=== PATIENT | female | born 1985 | race Caucasian/White ===

== ENCOUNTER 2016-08-10 09:08 | Emergency (ER) | payer BC ==
[~2016-08-10] VITALS: Ht 170.2 cm; Wt 58.0 kg
[2016-08-10 09:10] VITALS: BP 132/96; PULSE 116; RESP 20; TEMP 98.4; O2SAT 100
[2016-08-10] MEDS ORDERED: SODIUM CHLOR 0.9% 1000 ML INJ 1,000 ML IV SCH (10:22)
[2016-08-10] MEDS ORDERED: ONDANSETRON HCL 4 MG/2 ML VIAL IVP ONE (10:30)
[2016-08-10] MEDS ORDERED: SODIUM CHLORIDE 0.9% FLUSH 10 ML FLUSH IV FLUSH PRN (10:30)
--- NOTE | 2016-08-10 10:30 | PD ---
HPI Chief Complaint: GI Complaint Time Seen by Provider: 10:25 Travel History International Travel<30 days: No Contact w/Intl Traveler<30days: No Traveled to known affect area: No History of Present Illness HPI 31-year-old female presents to the emergency department for evaluation of nausea and weakness that started this morning. She reports chronic abdominal discomfort which is not worse. Patient denies any fevers or chills. She has had no vomiting. She was able to eat and pending and at this morning. She reports one episode of diarrhea without blood in her stool. No chest pain or shortness of breath. Patient denies . She does report a history of IBS, but is not currently on any medications. Patient does report burning with urination that started this morning as well. PFSH Past Medical History Anxiety: Yes Diabetes: No Medical other: Yes (IBS) Tetanus Vaccination: < 5 Years Influenza Vaccination: Yes ?: Not LMP: ONE WEEK AGO Past Surgical History Surgical History: No Previous Surgery Social History Alcohol Use: No Tobacco Use: No Substance Use: No Allergies-Medications (Allergen,Severity, Reaction): Coded Allergies: No Known Allergies (Unverified , 08/10/16) Reported Meds & Prescriptions Reported Meds & Active Scripts Active No Active Prescriptions or Reported Medications Review of Systems Except as stated in HPI: all other systems reviewed are Neg Physical Exam Narrative GENERAL: Well-nourished, well-developed female patient, ambulatory. Afebrile. SKIN: Focused skin assessment warm/dry. HEAD: Normocephalic. Atraumatic. EYES: No scleral icterus. No injection or drainage. NECK: Supple, trachea midline. No JVD or lymphadenopathy. CARDIOVASCULAR: Regular rate and rhythm without murmurs, gallops, or rubs. RESPIRATORY: Breath sounds equal bilaterally. No accessory muscle use. Lungs sounds are clear to auscultation. GASTROINTESTINAL: Abdomen soft, non-tender, nondistended. MUSCULOSKELETAL: No cyanosis, or edema. BACK: Nontender without obvious deformity. No CVA tenderness. Data Data Last Documented VS Vital Signs Date Time Temp Pulse Resp B/P Pulse Ox O2 Delivery O2 Flow Rate FiO2 08/10/16 10:32 18 98 Room Air 08/10/16 09:10 98.4 116 132/96 Orders Complete Blood Count With Diff (08/10/16 10:22) Comprehensive Metabolic Panel (08/10/16 10:22) Lipase (08/10/16 10:22) Urinalysis - C+S If Indicated (08/10/16 10:22) Iv Access Insert/Monitor (08/10/16 10:22) Ecg Monitoring (08/10/16 10:22) Oximetry (08/10/16 10:22) Ondansetron Inj (Zofran Inj) (08/10/16 10:30) Sodium Chlor 0.9% 1000 Ml Inj (Ns 1000 M (08/10/16 10:22) Sodium Chloride 0.9% Flush (Ns Flush) (08/10/16 10:30) Ed Urine Pregnancytest Poc (08/10/16 10:22) Labs Laboratory Tests Test 08/10/16 08/10/16 10:20 10:30 Urine Color LIGHT-YELLOW Urine Turbidity CLEAR Urine pH 7.5 Urine Specific [place] 1.005 Urine Protein NEG mg/dL Urine Glucose (UA) NEG mg/dL Urine Ketones NEG mg/dL Urine Occult Blood NEG Urine Nitrite NEG Urine Bilirubin NEG Urine Urobilinogen LESS THAN 2.0 MG/DL Urine Leukocyte Esterase NEG Urine RBC LESS THAN 1 /hpf Urine WBC LESS THAN 1 /hpf Urine Squamous Epithelial 1 /hpf Cells Microscopic Urinalysis Comment CULT NOT INDICATED White Blood Count 5.7 TH/MM3 Red Blood Count 4.52 MIL/MM3 Hemoglobin 13.5 GM/DL Hematocrit 38.6 % Mean Corpuscular Volume 85.5 FL Mean Corpuscular Hemoglobin 30.0 PG Mean Corpuscular Hemoglobin 35.0 % Concent Red Cell Distribution Width 13.5 % Platelet Count 313 TH/MM3 Mean Platelet Volume 8.0 FL Neutrophils (%) (Auto) 66.0 % Lymphocytes (%) (Auto) 24.7 % Monocytes (%) (Auto) 7.1 % Eosinophils (%) (Auto) 1.4 % Basophils (%) (Auto) 0.8 % Neutrophils # (Auto) 3.8 TH/MM3 Lymphocytes # (Auto) 1.4 TH/MM3 Monocytes # (Auto) 0.4 TH/MM3 Eosinophils # (Auto) 0.1 TH/MM3 Basophils # (Auto) 0.0 TH/MM3 CBC Comment DIFF FINAL Differential Comment Sodium Level 140 MEQ/L Potassium Level 3.8 MEQ/L Chloride Level 105 MEQ/L Carbon Dioxide Level 28.7 MEQ/L Anion Gap 6 MEQ/L Blood Urea Nitrogen 9 MG/DL Creatinine 0.67 MG/DL Estimat Glomerular Filtration 102 ML/MIN Rate Random Glucose 86 MG/DL Calcium Level 9.1 MG/DL Total Bilirubin 0.5 MG/DL Aspartate Amino Transf 6 U/L (AST/SGOT) Alanine Aminotransferase 15 U/L (ALT/SGPT) Alkaline Phosphatase 36 U/L Total Protein 7.2 GM/DL Albumin 4.3 GM/DL Lipase 77 U/L [facility] Medical Decision Making Medical Screen Exam Complete: Yes Emergency Medical Condition: Yes Medical Record Reviewed: Yes Differential Diagnosis Viral syndrome versus gastroenteritis versus urinary tract infection versus pyelonephritis versus irritable bowel syndrome Narrative Course 31-year-old female presents to the emergency department for evaluation of nausea and weakness. She also reports dysuria. CBC, CMP, lipase, UA, urine test are ordered and pending. Patient is given normal saline 1 L IV bolus and Zofran 4 mg IV. CBC is unremarkable. CMP is unremarkable. Lipase is 77. UA is negative for acute infection. UPT is negative. Physical exam and laboratory findings are reassuring. Patient will be discharged prescription for Zofran. I discussed the physical exam findings, laboratory findings with my attending physician, Dr. Manzano, who agrees with plan and disposition. The patient was discharged in stable condition with instructions, including return instructions and follow up instructions. Diagnosis Primary Impression: Nausea Referrals: Primary Care Physician call for appointment Patient Instructions: Acute Nausea and Vomiting (ED), General Instructions Additional Instructions: Take Zofran as directed as needed for nausea. Follow-up with your primary care physician. Return to the emergency department for any acute worsening of symptoms. Med/Other Pt SpecificInfo: Prescription(s) given Scripts Ondansetron Odt 4 Mg Tab4 Mg SL Q6HR PRN (Nausea/Vomiting) #16 TAB Ref 0 Prov:Rose Stanley 08/10/16 Disposition: 01 DISCHARGE HOME Condition: Stable Rose Stanley Aug 10, 2016 10:30
[2016-08-10 10:32] VITALS: RESP 18; O2SAT 98
[2016-08-10 11:03] LABS: AUTOMATED NEUTROPHIL # 3.8 TH/MM3 (1.8-7.7); BASOPHIL % 0.8 % (0.0-2.0); EOSINOPHIL # 0.1 TH/MM3 (0-0.4); EOSINOPHIL % 1.4 % (0.0-4.0); HEMATOCRIT 38.6 % (35.0-46.0); HEMO FLAGS DIFF FINAL; LYMPH % 24.7 % (9.0-44.0); LYMPHOCYTE # 1.4 TH/MM3 (1.0-4.8); MEAN CELL VOLUME 85.5 FL (80.0-100.0); MONO % 7.1 % (0.0-8.0); PLATELET COUNT 313 TH/MM3 (150-450); RED BLOOD COUNT 4.52 MIL/MM3 (4.00-5.30); RED CELL DISTRIBUTION WIDTH 13.5 % (11.6-17.2); WHITE BLOOD COUNT 5.7 TH/MM3 (4.0-11.0)
[2016-08-10 11:07] LABS: BLOOD, URINE NEG (NEG); GLUCOSE,URINE NEG (NEG); KETONE, URINE NEG (NEG); NITRITE,URINE NEG (NEG); PH, URINE 7.5 (5.0-8.5); SQUAMOUS EPITHELIAL CELL URINE 1 /hpf (0-5); URINE COLOR LIGHT-YELLOW (YELLW/STRAW)
[2016-08-10 11:12] LABS: COMMENT (UR) CULT NOT INDICATED; CULTURE IF INDICATED CULT NOT INDICATED
[2016-08-10 11:21] LABS: ANION GAP 6 MEQ/L (5-15); AST (GOT) 6 U/L (15-37); BICARBONATE 28.7 MEQ/L (21.0-32.0); BLOOD UREA NITROGEN 9 MG/DL (7-18); CHLORIDE 105 MEQ/L (98-107); GLOMERULAR FILTRATION RATE 102 ML/MIN (>89); POTASSIUM 3.8 MEQ/L (3.5-5.1); SODIUM (NA) 140 MEQ/L (136-145)
[2016-08-10 12:30] LABS: ALKALINE PHOSPHATASE 36 U/L (45-117); ALT (GPT) 15 U/L (10-53); TOTAL BILIRUBIN ADULT 0.5 MG/DL (0.2-1.0)
[2016-08-10] MEDS ORDERED: ONDA4TAB7 SL (12:38)
[2016-08-29] MEDS ORDERED: LORA-474 PO (11:49)
[2016-09-08] MEDS ORDERED: AZIT250T3 PO (14:30)
[2016-09-08] MEDS ORDERED: METR500T10 PO (14:30)
[2016-09-08] MEDS ORDERED: CEFT250I IM (14:47)
[2016-10-12] MEDS ORDERED: RANI150T PO (10:16)
[2016-10-12] MEDS ORDERED: AMIT24CA5 PO ×2 (10:16→14:02)
[2016-10-12] MEDS ORDERED: DULO1CAP2 PO ×2 (10:16→14:02)
[2016-10-12] MEDS ORDERED: SUCR1TAB PO (10:16)
[2016-10-12] MEDS ORDERED: PERM5CRE TOPICAL ×2 (10:22→14:02)
[2016-10-12] MEDS ORDERED: LORA-474 PO (10:23)
== END 2016-08-10 13:04 | disposition home or self-care (01) ==
LOC: NEPD 09:08
DX: R11.0 Nausea (principal); K58.9 Irritable bowel syndrome, unspecified
CPT/HCPCS: 80053; 81001; 83690; 84703; 85025; 96361; 96374; 99284; J2405; J7030

== ENCOUNTER → 2016-08-31 | Outpatient (CLI) | payer BC ==
[~2016-08-31] MED LIST: AMIT24CA5 PO; AZIT250T3 PO; CEFT250I IM; DULO1CAP2 PO; LORA-474 PO; METR500T10 PO; ONDA4TAB7 SL; PERM5CRE TOPICAL; RANI150T PO; SUCR1TAB PO
--- NOTE | 2016-09-01 15:29 | HM ---
Date Performed: 08/31/2016 Time Performed: 09:13:00 HOOKUP DATE: 08/31/16 09:13:00 AM Wed ANALYSIS START TIME: 08/31/2016 9:18:00 AM ANALYSIS END TIME: 09/01/2016 9:02:27 AM PATIENT AGE: 31 PATIENT HEIGHT PATIENT WEIGHT DRUG LIST PATIENT DIAGNOSIS: palpitations TEST NARRATIVE: The patient's average heart rate was 91 BPM. Heart rates greater than 120 B PM were noted 17% of the time. Heart rates less than 50 BPM were noted < 1% of the time. No paus es exceeding 2.0 seconds were noted. 21 ventricular ectopics, which represented < 1% of the total beat count, were noted. The highest ventricular ectopic frequency occurred from 06:00 PM to 07:00 P M Wed. During this time 5 VE(s) occurred. Ventricular ectopics were observed as 21 isolated beat(s) only. No couplets or runs were noted. No supraventricular ectopics were noted. Multiple epi sodes of ST depression (defined as -1.0 mm or more) were noted in channel 1. The maximum depression of -3.2 mm occurred at 02:51:44 PM Wed. Multiple episodes of ST depression (defined as -1.0 mm or m ore) were noted in channel 2. The maximum depression of -3.7 mm occurred at 02:52:04 PM Wed. Multi ple episodes of ST depression (defined as -1.0 mm or more) were noted in channel 3. The maximum dep ression of -3.7 mm occurred at 02:51:46 PM Wed. TEST INTERPRETATION: Monitored for 23 hours and 44 minutes. Patient was in all Sinus rhythm average rate of 91 bpm. A period of SVT to 179 bpm. Periods of sinus bradycardia to 48 bpm, 21 PVCs, 0 PACs. Note: SVT is probably sinus tachycardia, but I cannot confirm this based on the tracings. Signed by : Mat Ray
== END ==
LOC: HCAV 08:53
PROVIDERS: ATTEND Family Medicine
DX: R00.2 Palpitations (principal)
CPT/HCPCS: 93225; 93226